=== PATIENT | female | born 1980 | race Caucasian/White ===

== ENCOUNTER → 2017-05-10 | Outpatient (CLI) | payer BC ==
[~2017-05-10] MED LIST: AMIT75TA2 PO; ASPI81TA28 PO; CHOL100010 PO; CIPR-255 PO; DPPI150 IM; FLV1 PO; LAMO1TAB77 PO; LAMO1TAB79 PO; MXL10 PO; OMEP40CA41 PO
--- NOTE | 2017-05-10 17:12 | DIAGNOSTIC IMAGING REPORT ---
VENOUS DOPP LOWER EXT UNILAT CLINICAL HISTORY: M79.669 Calf painR/O DVT RIGHT LOWER [id number] pain. Edema. TECHNIQUE: Venous Doppler COMPARISON STUDY: None FINDINGS: Normal study IMPRESSION: Normal study The above report was generated using voice recognition software. It may contain grammatical, syntax or spelling errors. Electronically signed by: Ramón Morocho M.D. 05/10/2017 5:10 PM Dictated Date/Time: 05/10/2017 5:10 PM
== END | disposition home or self-care (01) ==
LOC: C.ULTR 16:46
PROVIDERS: ATTEND Internal Medicine
DX: M79.669 Pain in unspecified lower leg (principal)

== ENCOUNTER → 2017-05-12 | Outpatient (CLI) | payer BC ==
--- NOTE | 2017-05-12 14:17 | DIAGNOSTIC IMAGING REPORT ---
ULTRASOUND RIGHT LOWER EXTREMITY ARTERIAL; ANKLE-BRACHIAL INDICES CLINICAL HISTORY: Right calf pain and swelling. COMPARISON STUDY: No priors. TECHNIQUE: Real-time, grayscale, and color Doppler sonography of the right lower extremity arteries is performed from the inguinal crease to the foot. Ankle-brachial indices are calculated. FINDINGS: Ankle-brachial indices: Right brachial pressure measures 112 and left brachial pressure measures 120. Pressures in the right posterior tibial artery measure 120 for an BENITO of 1.0, and pressures in the right dorsalis pedis artery measure 121 for an BENITO of 1.01. Pressures in the left posterior tibial artery measure 121 for an BENITO of 1.01, and pressures in the left dorsalis pedis artery measure 115 for an BENITO of 0.96. Right lower extremity: No significant atherosclerotic plaque is identified throughout the arteries of the right lower extremity. There are normal triphasic waveforms in the right common femoral artery with velocities measuring up to 135 cm/s. There are normal triphasic waveforms seen throughout the superficial femoral artery with velocities measuring up to 106 cm/s. The left profunda femoris artery is patent with velocities measuring up to 99 cm/s. There are triphasic waveforms in the popliteal artery with velocities measuring up to 73 cm/s. There is three-vessel runoff to the foot. Velocities within the calf arteries measure up to 76 cm/s. The dorsalis pedis artery is patent with velocities measuring up to 56 cm/s. IMPRESSION: 1. There is no sonographic evidence of high-grade stenosis or focal vessel cutoff throughout the arteries of the right lower extremity. 2. Ankle brachial indices as above. Dictated: 05/12/2017 2:04 PM Transcribed: 05/12/2017 2:16 PM García Electronically signed by: Kai Murray M.D. 05/12/2017 2:29 PM Dictated Date/Time: 05/12/2017 2:04 PM
== END | disposition home or self-care (01) ==
LOC: C.ULTR 12:54
PROVIDERS: ATTEND Nurse Practitioner
DX: M79.669 Pain in unspecified lower leg (principal); M79.89 Other specified soft tissue disorders

== ENCOUNTER → 2017-05-14 | Outpatient (CLI) | payer BC ==
--- NOTE | 2017-05-14 16:11 | DIAGNOSTIC IMAGING REPORT ---
R TIBIA/FIBULA 2 VIEWS ROUTINE, R ANKLE MIN 3 VIEWS ROUTINE CLINICAL HISTORY: M79.669 Calf painM79.89 Calf [id number]. Right ankle swelling. COMPARISON STUDY: None. FINDINGS: No fracture or dislocation. Mild soft tissue swelling within the distal right lower leg/ankle. Tiny plantar heel spur.. No radiopaque foreign bodies. IMPRESSION: No fractures. Mild soft tissue swelling within the distal right lower leg/ankle. Electronically signed by: Rajesh Lal M.D. 05/14/2017 4:10 PM Dictated Date/Time: 05/14/2017 4:09 PM
--- NOTE | 2017-05-14 16:11 | DIAGNOSTIC IMAGING REPORT ---
R TIBIA/FIBULA 2 VIEWS ROUTINE, R ANKLE MIN 3 VIEWS ROUTINE CLINICAL HISTORY: M79.669 Calf painM79.89 Calf [id number]. Right ankle swelling. COMPARISON STUDY: None. FINDINGS: No fracture or dislocation. Mild soft tissue swelling within the distal right lower leg/ankle. Tiny plantar heel spur.. No radiopaque foreign bodies. IMPRESSION: No fractures. Mild soft tissue swelling within the distal right lower leg/ankle. Electronically signed by: Rajesh Lal M.D. 05/14/2017 4:10 PM Dictated Date/Time: 05/14/2017 4:09 PM
== END | disposition home or self-care (01) ==
LOC: C.RAD 15:11
PROVIDERS: ATTEND Nurse Practitioner
DX: M79.661 Pain in right lower leg (principal); M79.89 Other specified soft tissue disorders

== ENCOUNTER → 2017-11-21 | Outpatient (CLI) | payer BC ==
[~2017-11-21] MED LIST changes: -MXL10 PO; +RIZA10TA21 PO
[2017-11-21 17:31] LABS: BASO % 0.6 %; BASO ABS # 0.06 K/uL (0-0.2); EOS ABS # 0.43 K/uL (0-0.5); HEMATOCRIT 40.2 % (37-47); HEMOGLOBIN 13.7 g/dL (12.0-16.0); IG# 0.02 K/uL (0.00-0.02); LYMPH % 35.4 %; LYMPH ABS # 3.82 K/uL (1.2-3.4); MEAN CELL VOLUME 88.7 fL (80-100); MEAN CORPUSCULAR HEMOGLOBIN 30.2 pg (25-34); MEAN CORPUSCULAR HGB CONC 34.1 g/dl (32-36); MEAN PLATELET VOLUME 9.4 fL (7.4-10.4); MONO % 6.1 %; MONO ABS # 0.66 K/uL (0.11-0.59); NEUT % 53.7 %; PLATELET COUNT 500 K/uL (130-400); RED CELL DISTRIBUTION WIDTH CV 16.5 % (11.5-14.5); RED CELL DISTRIBUTION WIDTH SD 53.6 fL (36.4-46.3); WHITE BLOOD COUNT 10.79 K/uL (4.8-10.8)
== END | disposition home or self-care (01) ==
LOC: C.LABBFT 13:29
PROVIDERS: ATTEND Internal Medicine Hematology & Oncology
DX: D72.828 Other elevated white blood cell count (principal)

== ENCOUNTER → 2017-12-08 | Outpatient (CLI) | payer BC ==
--- NOTE | 2017-12-08 18:17 | DIAGNOSTIC IMAGING REPORT ---
R KNEE 1 OR 2 VIEWS ROUTINE HISTORY: 37 years-old Female RIGHT KNEE INJURY acute right knee pain COMPARISON: Right tibia and fibula radiographs 05/14/2017 TECHNIQUE: 2 views of the right knee FINDINGS: No acute fracture, dislocation or significant degenerative changes. Minimal marginal spurring of the inferior pole patella. Soft tissues are unremarkable. No opaque foreign body or large joint effusion. IMPRESSION: No acute bony abnormality. The above report was generated using voice recognition software. It may contain grammatical, syntax or spelling errors. Electronically signed by: Lenin Fagan M.D. 12/08/2017 6:15 PM Dictated Date/Time: 12/08/2017 6:14 PM
--- NOTE | 2017-12-08 18:18 | DIAGNOSTIC IMAGING REPORT ---
R SHOULDER MIN 2 VIEWS ROUTINE HISTORY: 37 years-old Female INJURY OF RIGHT ROTATOR CUFF acute right shoulder pain COMPARISON: Chest radiographs 05/24/2011 TECHNIQUE: 3 views of the right shoulder FINDINGS: No acute fracture, dislocation or significant degenerative changes. Minimal marginal spurring of the inferior glenoid. Soft tissues are unremarkable without opaque foreign body. Imaged lung nicholson appear clear. IMPRESSION: 1. No acute fracture or dislocation. 2. Mild marginal spurring about the inferior glenoid. The above report was generated using voice recognition software. It may contain grammatical, syntax or spelling errors. Electronically signed by: Lenin Fagan M.D. 12/08/2017 6:17 PM Dictated Date/Time: 12/08/2017 6:15 PM
== END | disposition home or self-care (01) ==
LOC: C.RAD 17:27
PROVIDERS: ATTEND Nurse Practitioner
DX: S89.91XA Unspecified injury of right lower leg, initial encounter (principal); S46.001A Unspecified injury of muscle(s) and tendon(s) of the rotator cuff of right shoulder, initial encounter; X58.XXXA Exposure to other specified factors, initial encounter

== ENCOUNTER → 2017-12-19 | Outpatient (CLI) | payer BC ==
--- NOTE | 2017-12-19 20:44 | DIAGNOSTIC IMAGING REPORT ---
R UPPER EXT JOINT WITHOUT CLINICAL HISTORY: S46.001A Injury of right rotator cuffW19.XXXA Fall at homeMRIRig trauma. Pain. TECHNIQUE: Multi axial MRI acquisition COMPARISON STUDY: None FINDINGS: Signal characteristics of the osseous structures are within normal limits. Rotator cuff shows presence of moderate supraspinatus as well as subscapularis tendinitis. There are findings of a small partial tear of the anterior margin of the supraspinatus tendon. There is no evidence for full-thickness rotator cuff tear. Biceps tendon is intact within the bicipital groove. There are moderate degenerative changes of the anterior margin of the glenoid labrum although well-defined acute labral tear is not appreciated. IMPRESSION: 1. Small partial thickness tear anterior margin supraspinatus tendon. 2. Moderate superimposed supraspinatus tendinitis and subscapularis tendinitis. 3. Moderate degenerative substance change anterior glenoid labrum . 4. No evidence for a full-thickness rotator cuff tear. The above report was generated using voice recognition software. It may contain grammatical, syntax or spelling errors. Electronically signed by: Ramón Morocho M.D. 12/19/2017 8:42 PM Dictated Date/Time: 12/19/2017 8:33 PM
--- NOTE | 2017-12-19 21:18 | DIAGNOSTIC IMAGING REPORT ---
R LOWER EXT JOINT WITHOUT CLINICAL HISTORY: S89.91XA Right knee [id number] Fall at [id number] trauma. Pain. TECHNIQUE: Multi axial MRI acquisition COMPARISON STUDY: None FINDINGS: Mild contusion of the mid and inferior aspect of the patella. Quadriceps tendon as well as infrapatellar tendon are intact. Mild prepatellar soft tissue edematous change. There graft the patellofemoral joint specifically is intact. There are findings of minimal chondromalacia with no significant loss of articular services. Medial lateral patellar retinaculum appear intact. Anterior and posterior cruciate ligaments are intact. The medial and lateral menisci are unremarkable and overall signal character as well as configuration. The medial and lateral collateral ligament complexes show no evidence for disruption. IMPRESSION: 1. Bone contusion of the mid and inferior aspects of the patella. 2. Prepatellar soft tissue contusion. 3. All remaining components of the knee are unremarkable. 4. Minimal chondromalacia patella with no significant loss of articular surface The above report was generated using voice recognition software. It may contain grammatical, syntax or spelling errors. Electronically signed by: Ramón Morocho M.D. 12/19/2017 9:17 PM Dictated Date/Time: 12/19/2017 9:13 PM
== END | disposition home or self-care (01) ==
LOC: C.MRI 18:33
PROVIDERS: ATTEND Nurse Practitioner
DX: S80.01XA Contusion of right knee, initial encounter (principal); M75.101 Unspecified rotator cuff tear or rupture of right shoulder, not specified as traumatic; W19.XXXA Unspecified fall, initial encounter

== ENCOUNTER → 2018-04-05 | Outpatient (CLI) | payer BC ==
[~2018-04-05] MED LIST changes: -CHOL100010 PO; -CIPR-255 PO; +MAGN400T7 PO; +MELO-83 PO; +RIBO1TAB4 PO
== END | disposition home or self-care (01) ==
LOC: C.PAPS 16:13
PROVIDERS: ATTEND Obstetrics & Gynecology
DX: Z01.419 Encounter for gynecological examination (general) (routine) without abnormal findings (principal); R87.616 Satisfactory cervical smear but lacking transformation zone; Z87.410 Personal history of cervical dysplasia